=== PATIENT | male | born 1970 | race African-American/Black ===

== ENCOUNTER 2019-01-22 12:07 | Emergency (ER) | payer MEDICAID ==
[~2019-01-22] VITALS: Ht 170.2 cm; Wt 78.0 kg
[~2019-01-22 12:07] MED LIST: CLONIDINE
[2019-01-22 12:26] VITALS: BP 150/93
== END 2019-01-22 14:41 | disposition left against medical advice (07) ==
LOC: ER 12:07
DX: R10.9 Unspecified abdominal pain (principal); Z53.21 Procedure and treatment not carried out due to patient leaving prior to being seen by health care provider

== ENCOUNTER 2020-05-03 11:38 | Emergency (ER) | payer MEDICAID ==
[~2020-05-03] VITALS: Ht 170.2 cm; Wt 69.0 kg
[2020-05-03] MEDS ORDERED: IBUPROFEN 600MG TABLET PO ONE (12:00)
[2020-05-03 14:14] VITALS: BP 122/77
== END 2020-05-03 14:16 | disposition home or self-care (01) ==
LOC: ER 11:38
DX: R68.84 Jaw pain (principal); I10 Essential (primary) hypertension; Z98.890 Other specified postprocedural states; Z88.0 Allergy status to penicillin
CPT/HCPCS: 70486; 99284

== ENCOUNTER 2021-03-21 11:50 | Emergency (ER) | payer MEDICAID ==
[~2021-03-21] VITALS: Ht 170.2 cm; Wt 69.0 kg
[2021-03-21 12:48] VITALS: BP 142/83
== END 2021-03-21 13:06 | disposition home or self-care (01) ==
LOC: ER 11:50
DX: I10 Essential (primary) hypertension (principal); F17.210 Nicotine dependence, cigarettes, uncomplicated; Z71.6 Tobacco abuse counseling; Z98.890 Other specified postprocedural states; Z88.0 Allergy status to penicillin
CPT/HCPCS: 82962; 99281

== ENCOUNTER 2022-06-05 11:50 | Emergency (ER) | payer MEDICAID, OTHER ==
[~2022-06-05] VITALS: Ht 170.2 cm; Wt 70.0 kg
[2022-06-05 11:56] VITALS: BP 129/80
[2022-06-05] MEDS ORDERED: SULF1TAB48 MT (14:18)
[2022-06-05] MEDS ORDERED: CEFD300C3 MT (14:18)
== END 2022-06-05 14:33 | disposition home or self-care (01) ==
LOC: ER 11:50
DX: L03.213 Periorbital cellulitis (principal); I10 Essential (primary) hypertension; Z88.0 Allergy status to penicillin
CPT/HCPCS: 99283

== ENCOUNTER 2022-10-16 11:28 | Emergency (ER) | payer MEDICAID, OTHER ==
[~2022-10-16] VITALS: Ht 172.7 cm; Wt 80.0 kg
[~2022-10-16 11:28] MED LIST changes: +CEFD300C3 MT; +SULF1TAB48 MT
[2022-10-16 12:30] VITALS: BP 139/94
== END 2022-10-16 14:47 | disposition home or self-care (01) ==
LOC: ER 11:28
DX: R10.30 Lower abdominal pain, unspecified (principal); K62.5 Hemorrhage of anus and rectum; I10 Essential (primary) hypertension; Z88.0 Allergy status to penicillin
CPT/HCPCS: 99281

== ENCOUNTER 2024-02-12 22:47 | Emergency (ER) | payer MEDICAID ==
[~2024-02-12] VITALS: Ht 170.2 cm; Wt 67.0 kg
[2024-02-12 23:16] VITALS: BP 169/97; PULSE 82; RESP 18; TEMP 98; O2SAT 99
[2024-02-13] MEDS ORDERED: TOPUD PO (07:08)
[2024-02-13] MEDS: ACETAMINOPHEN 325MG TABLET PO ONE (08:15)
[2024-02-13 08:47] LABS: CLARITY URINE CLEAR (CLEAR); COLOR URINE YELLOW (YELLOW); GLUCOSE URINE NEGATIVE (NEGATIVE); KETONES URINE NEGATIVE (NEGATIVE); LEUKOCYTE ESTERASE URINE 2+ (NEGATIVE); NITRITE URINE POSITIVE (NEGATIVE); OCCULT BLOOD URINE TRACE (NEGATIVE); PH URINE 6.5 (4.5-8.0); PROTEIN URINE NEGATIVE (NEGATIVE); SPECIFIC GRAVITY URINE 1.008 (1.005-1.030)
[2024-02-13 09:44] LABS: SQUAMOUS EPITHELIAL CELL URINE 1+ /lpf (RARE/1+)
[2024-02-13 09:45] LABS: WBC URINE 15-25 /hpf (0-2)
[2024-02-13 09:46] LABS: BACTERIA URINE 4+; RBC URINE 0-2 /hpf (0-2)
== END 2024-02-13 08:21 | disposition home or self-care (01) ==
LOC: ER 22:47
DX: Q55.29 Other congenital malformations of testis and scrotum (principal); Z88.0 Allergy status to penicillin
CPT/HCPCS: 76870; 81003; 87077; 87186; 93976; 99284

== ENCOUNTER 2024-09-23 07:50 | Emergency (ER) | payer MEDICAID ==
[~2024-09-23] VITALS: Ht 170.2 cm; Wt 71.0 kg
[~2024-09-23 07:50] MED LIST changes: +TOPUD PO
[2024-09-23 07:56] VITALS: O2SAT 100
[2024-09-23] MEDS ORDERED: ONDANSETRON 4MG ODT PO STA (09:49)
[2024-09-23] MEDS ORDERED: PANTOPRAZOLE 40MG DR TABLET PO ONE (10:00)
[2024-09-23 10:27] VITALS: BP 150/75; PULSE 83; RESP 18; TEMP 36.83628; O2SAT 100
== END 2024-09-23 10:49 | disposition home or self-care (01) ==
LOC: ER 07:57
DX: K62.3 Rectal prolapse (principal); Z88.0 Allergy status to penicillin
CPT/HCPCS: 99281